=== PATIENT | male | born 1935 | race Caucasian/White ===

== ENCOUNTER → 2016-05-29 | Outpatient (CLI) | payer MEDICARE, OTHER ==
[~2016-05-29] MED LIST: ATEN50TA2 PO; BENA20TA2 PO; BISO5TAB5 PO; CALC-210 PO; DIGO0.12 PO; FURO40TA2 PO; GLUC500T53 PO; LISI10TA4 PO; NEXI40CA PO; OPTI0.5D5 OU; SIMV20TA2 PO; VITMTA PO; XARE15TA PO
[2016-05-29 13:18] LABS: ANION GAP 9 MEQ/L (8-16); BLOOD UREA NITROGEN 18 MG/DL (7-18); CALCIUM LEVEL 8.8 MG/DL (8.8-10.2); CARBON DIOXIDE LEVEL 29 MEQ/L (21-32); CHLORIDE LEVEL 105 MEQ/L (98-107); CREATININE FOR GFR 1.04 MG/DL (0.70-1.30); GLOMERULAR FILTRATION RATE > 60.0 (>35); GLUCOSE, FASTING 99 MG/DL (83-110); POTASSIUM SERUM 4.2 MEQ/L (3.5-5.1); SODIUM LEVEL 143 MEQ/L (136-145)
[2016-05-29 13:35] LABS: CALCIUM OXALATE CRYSTALS SMALL
== END ==
LOC: M SMT 10:11
PROVIDERS: ATTEND Nurse Practitioner Women's Health
DX: R31.29 Other microscopic hematuria (principal)
CPT/HCPCS: 36415; 80048; 81001; 87086; 88108; G0463

== ENCOUNTER → 2016-06-05 | Outpatient (CLI) | payer MEDICARE, OTHER ==
--- NOTE | 2016-06-05 16:15 | REP ---
Clinical: Microscopic hematuria. Technique: Axial precontrast, contrast enhanced, and delayed images of the abdomen and pelvis using 100 ml Isovue 370 intravenous contrast material with delayed coronal and sagittal re-formations. Comparison: 03/18/2014. Findings: The kidneys demonstrate mild symmetric chronic perinephric stranding without hydronephrosis or nephrolithiasis. Solitary bilateral sub centimeter cysts are noted along with 1.8 centimeter and 1.9 cm simple right renal cysts. The kidneys demonstrate symmetric enhancement as well as symmetric excretion into the collecting system on delayed images. The prostate gland is heterogeneous and enlarged measuring 6.5 cm maximal diameter with mass effect on the base of the bladder. Liver, spleen, pancreas, and bilateral adrenal glands are normal. Cholelithiasis noted without CT evidence for acute cholecystitis. The enteric system demonstrates scattered diverticula without acute diverticulitis and no evidence for bowel obstruction or acute inflammatory process. Normal terminal ileum and appendix are identified in the right lower quadrant. Small fat containing inguinal hernias noted. No ascites. No adenopathy. No free air. Abdominal aorta without aneurysm or dissection. Surrounding musculoskeletal structures demonstrate degenerative changes without focal osseous abnormality. Lung bases demonstrate chronic plate-like scarring in the left lower lobe as well as moderate hiatal hernia at the gastroesophageal junction. Impression: 1. Few simple renal cysts measuring up to 1.9 cm in the right kidney and no evidence for nephrolithiasis, hydroureteronephrosis or renal mass lesion. 2. Heterogeneously enhancing enlarged prostate gland measuring 6.5 cm maximal diameter. 3. Scattered colonic diverticula without acute diverticulitis. 4. Cholelithiasis. 5. Moderate hiatal hernia. Signed by Ivan Clements MD 06/05/2016 04:07 P
== END ==
LOC: M RAD 15:09
PROVIDERS: ATTEND Nurse Practitioner Women's Health
DX: R31.29 Other microscopic hematuria (principal); N28.1 Cyst of kidney, acquired; N40.0 Benign prostatic hyperplasia without lower urinary tract symptoms; K57.30 Diverticulosis of large intestine without perforation or abscess without bleeding; K80.20 Calculus of gallbladder without cholecystitis without obstruction; K44.9 Diaphragmatic hernia without obstruction or gangrene

== ENCOUNTER → 2016-06-07 | Outpatient (CLI) | payer MEDICARE, OTHER ==
--- NOTE | 2016-06-07 20:19 | REP ---
PA and lateral chest 06/07/2016 Indication: Bronchitis Comparison: PA and lateral chest 08/20/2011, CT abdomen pelvis 06/05/2016 The cardiac silhouette is upper normal size. There is a retrocardiac hiatal hernia of 8.6 cm transverse dimension containing a small air fluid level. There is blunting in the left costophrenic angle consistent with pleural scarring and/or minimal left basilar pleural effusion. There is bibasilar atelectasis. There is calcification anterior longitudinal ligament within the thoracic spine. Impression 1. Cardiac silhouette is upper normal size. 2. Small amount of left basilar pleural scarring and/or minimal left basilar pleural effusion. 3. Bibasilar atelectasis. 4. 8.6 cm retrocardiac hiatal hernia containing small air fluid level Signed by Luna Napoles MD 06/07/2016 08:11 P
== END ==
LOC: M CLY 13:02
PROVIDERS: ATTEND Family Medicine
DX: J40 Bronchitis, not specified as acute or chronic (principal); K44.9 Diaphragmatic hernia without obstruction or gangrene
CPT/HCPCS: 71020; G0463

== ENCOUNTER 2016-06-11 09:02 | Inpatient (IN) | payer MEDICARE, OTHER ==
[~2016-06-11] VITALS: Ht 171.4 cm; Wt 80.8 kg
[~2016-06-11 09:02] MED LIST changes: -ATEN50TA2 PO; -BENA20TA2 PO; +BENAZEPRIL 20 MG TAB PO SCH; -BISO5TAB5 PO; +BISOPROLOL FUMARATE 10 MG TAB PO SCH; -CALC-210 PO; -DIGO0.12 PO; -FURO40TA2 PO; -GLUC500T53 PO; -LISI10TA4 PO; -NEXI40CA PO; -OPTI0.5D5 OU; -SIMV20TA2 PO; -VITMTA PO; -XARE15TA PO
[2016-06-11] MEDS ORDERED: ACETAMINOPHEN TAB 650MG DOSE (2X325MG) PO PRN (09:45)
--- NOTE | 2016-06-11 10:19 | HPE ---
DATE OF ADMISSION: 06/11/2016 CHIEF COMPLAINT Does not feel well. HISTORY: Mr. Camrona is an 80-year-old male with a history of chronic atrial fibrillation who presented to this office 4 days ago with complaints of not feeling well, being uncomfortable when he lays down but denying chest pain or significant dyspnea. He was noted to be in atrial fibrillation with rapid ventricular response 120-130. He at that time was on bisoprolol/hydrochlorothiazide combination 2.5/6.25 and we elected to change him to 5 mg bisoprolol with instructions that if he notices feeling any worse in the interval to call the on-call physician or go to the ER. He did go to the ER on two occasions over the week. Was seen in [facility] where no changes to his medication regimen were made. Various tests were done but again no therapeutic intervention. He returns here today with continuing heart rate of 130, describing he has not slept in several days, feels ill at ease when he lays down but he is having trouble describing precisely who he feels ill at ease. PAST MEDICAL HISTORY: Remarkable for: Hypertension. Hyperlipidemia. Chronic atrial fibrillation. Allergy to PENICILLIN. Hepatitis A in 1972. Currently being evaluated by urology for BPH symptoms with microhematuria. 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 FAMILY HISTORY: Remarkable for father dying of emphysema at age 76. Son with colon cancer. The patient did have colonoscopy in 2002. Has never been in the hospital before for a medical problem. He has had left meniscus surgery, left inguinal hernia repair in 2005 and surgical removal of a cyst on his back. SOCIAL HISTORY: He is , lives near [place], [place]. REVIEW OF SYSTEMS: Vaguely ill at ease when he tried to lie down but denies dyspnea and denies substernal crushing chest pain. Denies nausea, vomiting, abdominal pain, diarrhea. Denies pain with breathing. No cough. No hemoptysis. He is not experiencing musculoskeletal pain. No hot joints. No pain with urination. No alteration of urinary patterns. No fevers, chills or sweats. CURRENT MEDICATIONS - simvastatin 20 mg daily - benazepril 20 mg daily - Nexium 40 mg by mouth daily - Xarelto 15 mg by mouth daily - bisoprolol 5 mg by mouth daily EXAM: The patient's blood pressure is 136/84, pulse 132, respiratory rate 18, O2 sat 95% on room air. He is afebrile with temperature 97.9, 67.5 inches, 185-1/2 pounds. General: Alert, pleasant, no distress. PSYCH: He is alert, oriented, neutral mood, appropriate affect. HEENT: Normocephalic, atraumatic. No thyroid enlargement or tracheal shift. No oral lesions. Neck: Shows good range of motion with no palpable mass. Lungs: Essentially clear to auscultation with minimal faint basilar rales appreciated. Review of chest x-ray done in this office Friday compared to one done that is available on a disc that he brought from [facility] shows some increased vascular markings and maybe some effusion developing in the base which was not present on Friday. Heart: Irregular rhythm consistent with atrial fibrillation. No murmur noted. Pulses are perceived everywhere. Abdomen: Soft. Slight right upper quadrant tenderness. No definite HJR appreciated at this time, however. Extremities: Show 1+ lower extremity edema. Again it is early in the morning but he has not been in bed of in the past couple of days because of difficulty lying down. He has no rash or unusual bruising. No neurologic abnormalities. He is alert, oriented and has no focal deficits. ASSESSMENT: Atrial fibrillation chronic with rapid ventricular response. This developed over the past several days, probable early onset of congestive heart failure (CHF). PLAN: The patient will be admitted to hospital, monitored space. Will increase bisoprolol to 10 mg daily and Lasix 20 mg by mouth twice daily with dosing parameters. Continue is benazepril with dosing parameters. Consult cardiology regarding atrial fibrillation problem. Continues his Xarelto since this agent will provide both deep venous thrombosis (DVT) prophylaxis and stroke prophylaxis in a setting of atrial fibrillation. Expectations for hospital stay will be to achieve rate control and relieve symptoms that are suggestive of early CHF. Anticipate two night stay and inpatient admission.
[2016-06-11 11:16] VITALS: BP 136/88
[2016-06-11 11:29] LABS: BASO # 0.1 K/mm3 (0.0-0.2); BASO % 0.7 % (0.0-1.0); EOS # 0.1 K/mm3 (0.0-0.50); EOS % 0.7 % (0.0-3.0); LARGE UNSTAINED CELL # 0.3 K/mm3 (0.0-0.4); LARGE UNSTAINED CELL % 2.2 % (0.0-4.0); LYMPH # 1.8 K/mm3 (1.5-4.5); LYMPH % 11.7 % (24.0-44.0); MEAN CORPUSCULAR HEMOGLOBIN 29.4 pg (27.0-33.0); MEAN CORPUSCULAR HGB CONC 31.7 g/dl (32.0-36.5); MEAN CORPUSCULAR VOLUME 92.8 fl (80.0-96.0); MONO # 0.8 K/mm3 (0.0-0.8); MONO % 6.2 % (0.0-5.0); NEUTROPHILS # 10.2 K/mm3 (1.8-7.7); NEUTROPHILS % 78.6 % (36.0-66.0); PLATELET COUNT, AUTOMATED 198 k/mm3 (150-450); RED CELL DISTRIBUTION WIDTH 13.7 % (11.5-14.5)
[2016-06-11] MEDS ORDERED: GLUC500T53 PO (11:34)
[2016-06-11] MEDS ORDERED: VITMTA PO (11:34)
[2016-06-11] MEDS ORDERED: SIMV20TA2 PO (11:34)
[2016-06-11] MEDS ORDERED: BISO5TAB5 PO (11:34)
[2016-06-11] MEDS ORDERED: BENA20TA2 PO (11:34)
[2016-06-11] MEDS ORDERED: XARE15TA PO (11:34)
[2016-06-11] MEDS ORDERED: CALC-210 PO (11:34)
[2016-06-11] MEDS ORDERED: NEXI40CA PO (11:34)
[2016-06-11] MEDS ORDERED: OPTI0.5D5 OU (11:38)
[2016-06-11 12:01] LABS: ALBUMIN 3.8 GM/DL (3.2-5.2); ALBUMIN/GLOBULIN RATIO 1.19 (1.00-1.93); ALKALINE PHOSPHATASE 69 U/L (45-117); ALT/SGPT 42 U/L (12-78); ANION GAP 9 MEQ/L (8-16); AST/SGOT 24 U/L (15-37); BILIRUBIN,TOTAL 0.5 MG/DL (0.2-1.0); BLOOD UREA NITROGEN 21 MG/DL (7-18); CALCIUM LEVEL 8.7 MG/DL (8.8-10.2); CARBON DIOXIDE LEVEL 27 MEQ/L (21-32); CHLORIDE LEVEL 106 MEQ/L (98-107); CREATININE FOR GFR 1.28 MG/DL (0.70-1.30); GLOMERULAR FILTRATION RATE 57.3 (>35); GLUCOSE, FASTING 132 MG/DL (83-110); POTASSIUM SERUM 3.8 MEQ/L (3.5-5.1); SODIUM LEVEL 142 MEQ/L (136-145); T UPTAKE 35 % (33-40); THYROXINE (T4) 9.4 UG/DL (4.5-12.0)
[2016-06-11] MEDS: PANTOPRAZOLE 40MG TAB (PROTONIX) PO SCH (13:21)
[2016-06-11] MEDS ORDERED: PREVNAR 13 VACCINE SYRINGE (CPT CODE:90670) IM SCH (15:15)
[2016-06-11 16:00] VITALS: BP 102/68
[2016-06-11] MEDS ORDERED: FUROSEMIDE 20 MG TAB PO SCH (17:00)
[2016-06-11] MEDS ORDERED: DIGOXIN INJ 0.5 MG/2 ML AMP (J1160) IV STA (17:25)
[2016-06-11] MEDS: RIVAROXABAN 15 MG TAB (XARELTO) PO SCH (17:33)
[2016-06-11] MEDS: METOPROLOL TART 25 MG TABLET PO SCH ×2 (17:38→23:59)
[2016-06-11] MEDS ORDERED: DIGOXIN 0.125 MG TAB PO ONE (17:45)
--- NOTE | 2016-06-11 18:54 | CR ---
DATE OF CONSULTATION: 06/11/2016 CARDIOLOGY CONSULTATION REFERRING PHYSICIAN: Dr. Jerel Ocasio INDICATION: Atrial fibrillation with rapid ventricular response. New-onset heart failure. HISTORY: An 80-year-old father of three grown children, retired resident of [place], [place], has been followed by Dr. Ocasio for multiple medical problems, including chronic essential hypertension and atrial fibrillation. Has had chronic atrial fibrillation for at least the past 2 years, previously controlled with Xarelto and low-dose bisoprolol. Apparently for the past week, the patient has noticed intermittent palpitations, worsening effort dyspnea, and intermittent diaphoresis and unsteadiness. Was seen by Dr. Ocasio Friday. June 07, and was found to have a rapid ventricular response to his chronic atrial fibrillation. His dosage of bisoprolol was increased. On the weekend he presented to [facility] Emergency Room because of recurrent rapid rates and shortness of breath. Was seen in followup by Dr. Ocasio today and again was found to have rapid ventricular response, averaging approximately 130 beats per minute despite the increased medication. Chest x-ray yesterday actually showed new-onset pulmonary venous congestion with pleural effusion. In light of these findings, he was referred for admission today. OTHER CARDINAL CARDIAC SYMPTOMS: Denies history of chest, jaw, or arm discomfort. Is unaware of an abnormal electrocardiogram (EKG) but did have a treadmill study more than 10 years ago through our office, which was reportedly "normal." Effort dyspnea this past week, as mentioned above, but no history of congestive heart failure in the past. Denies orthopnea or nocturnal dyspnea but did not sleep well last evening. Denies history of cough, hemoptysis, or sputum. Remote brief smoking history and prior episodes of walking pneumonia. Unaware of prior rheumatic fever, heart murmur, or cardiomegaly. Has longstanding essential hypertension. No significant weight problem (weighed 135 pounds at age 16; max weight 185 pounds 10 years ago; his weight has been stable at 175 pounds the past year). Interestingly, despite his history of atrial fibrillation, up until this past week he had not felt palpitations or had an awareness of his heart action. Reports drinking 2 cups of caffeinated coffee and drinking one glass of red wine daily. Avoids other sources of caffeine. No known thyroid dysfunction. Has a history of intermittent sinusitis/seasonal prior Afrin decongestant use. No recent problem. Has had some unsteadiness of the past few days. Denies actual falling or loss of consciousness. No history of lateralizing neurological deficit, flank pain, or blue toe syndrome. Recently being worked up for microscopic hematuria. Known prostatism. Denies claudication, ankle swelling, history of varicose veins, or phlebitis. CORONARY RISKS: Age, male gender, chronic hypertension, remote cigar and pipe smoker; stopped 40 years ago. Treated for hypercholesterolemia. No history of diabetes mellitus. No family history of premature coronary heart disease. No history of symptomatic carotid vascular disease. OTHER PAST MEDICAL HISTORY: 1. Gastroesophageal reflux disease, on Nexium. 2. Prior diverticular disease. 3. Previous colonic polypectomy. 4. History of vasovagal syncope. 5. Remote right knee surgery. 6. Remote inguinal herniorrhaphy. 7. Remote lipoma excision. 8. Prior bilateral cataract extraction. 9. Degenerative joint disease with degeneration of cervical discs with chronic neck discomforts. 10. Prostatism with microscopic hematuria. REVIEW OF SYSTEMS: Denies any recent history of fever, chills, or night sweats. Wears corrective lenses for reading. Reduced auditory acuity but does not often wear his hearing aids. Has his own teeth. Intermittent reflux and heartburn. No recent abdominal pain or gastrointestinal (GI) bleeding. Denies dysuria or hematuria. Urinary frequency related to his prostatism and microscopic hematuria, in the process of being worked up by neurology for tentative cystoscopy in several weeks' time. Chronic neck pain but no other arthralgia. Seasonal allergies but no frequent infections. All other systems review is negative. MEDICATIONS: At home he takes: - bisoprolol 5 mg daily - benazepril 20 mg daily - Xarelto 15 mg daily - simvastatin 20 mg at bedtime - Nexium 40 mg daily - calcium with vitamin B one tablet daily - glucosamine 1 gram daily - multivitamin daily - Refresh eyedrops one drop each eye as needed for dry eyes ALLERGIES: PENICILLIN (rash). PHYSICAL EXAMINATION: CONSTITUTIONAL: Pleasant, quite talkative elderly male of medium body build but quite tall. He lay comfortably with the head of bed elevated at 30 degrees. No pallor. VITAL SIGNS: Heart rate 120 beats per minute and irregularly irregular, blood pressure 107/69 supine, 100/60 sitting with legs dependent (both arms), respiratory rate 18 per minute, oxygen saturation 95% on room air. Afebrile. Weight 179 pounds, height 67 inches, body mass index (BMI) 27.7. EYES: Arcus senilis. No pallor or icterus. No xanthelasma. ENT/MOUTH: Multiple missing teeth. Normal palate. Normal oral moisture. No central cyanosis. NECK: Trachea midline. Thyroid not enlarged. Neck veins appear to be 2 cm above the sternal angle. RESPIRATORY: Normal-appearing chest configuration and chest expansion. Good air entry over both lung sarah with few bibasilar inspiratory rales and improved with a deep cough. No expiratory rhonchi. CARDIOVASCULAR: Apical impulse not palpable. Heart sounds were quite variable with his arrhythmia. No audible gallop or murmur. Normal carotid upstroke but variable volume related to his arrhythmia. No bruits. Upper extremity, and femoral pulses were symmetrical and normal. Pedal pulses were symmetrically decreased. No dependent edema. No varicose veins. His abdominal aorta was not palpable. No abdominal bruits. GASTROINTESTINAL: Soft, nontender abdomen with normal bowel sounds. No splenomegaly with liver span 7 cm in the right mid clavicular line. Rectal examination not indicated, but stool will be collected for occult blood. MUSCULOSKELETAL: Slight degenerative deformities of his distal finger joints but no other obvious joint deformity. Some proximal muscle weakness but normal tone. NEUROLOGIC/PSYCHIATRIC: Bright, alert, and oriented. Quite a tangential historian but oriented. Normal symmetrical eye, facial, and extremity movements with no abnormal movements. Normal spine curvature. SKIN: No rashes, ecchymotic lesions, pallor, or icterus. INVESTIGATIONS: Posterior-anterior (PA) and left lateral chest x-ray from [facility] on 06/10/2016 was reviewed independently and shows obvious cardiomegaly with CT ratio 17.2:32. Slightly unfolded thoracic aorta. Pulmonary venous congestion with subtle interstitial edema and pleural effusion. ELECTROCARDIOGRAM: Tracing taken today at 1:58 p.m. shows underlying atrial fibrillation with somewhat rapid ventricular response, averaging 127 beats per minute. Narrow QRS complexes but low voltages and slow precordial R-wave progression with persistent S waves in V5 and V6, in keeping with pulmonary disease. Could not rule out prior septal injury. Nonspecific diffuse ST/T-wave abnormalities. No prior EKG available for comparison. LABORATORY DATA: Blood work today shows a hemoglobin of 14.1 with leukocytosis of 13,000. Normal platelet count. Chemistry confirmed electrolyte balance with BUN 21, creatinine 1.28 (slightly up from 05/29/2016, when BUN was 18, creatinine 1.0. Random glucose 132. Serum magnesium was normal at 2.0. Liver function studies were normal with albumin 3.8. Normal cardiac enzymes. BNP level was elevated at 543. Thyroid profile showed a marginally increased TSH but normal free T4 index and T4 level. The last available lipid profile 08/11/2015 showed a total cholesterol of 134, LDL 69, HDL 42, triglyceride 114 with ratio 3.2. Urinalysis 05/29/2016 showed 2+ microscopic hematuria but no pyuria or bacteria. Urine protein and glucose were negative. IMPRESSION/PLAN: 1. Atrial fibrillation, chronic: Somewhat interesting that his ventricular response should increase at this point and that he should become aware of his heart action when he had not in the past. This may well be a reflection of cardiac enlargement and left ventricular dysfunction that has developed with time. In light of his current blood pressure and continued suboptimal blood pressure control, his bisoprolol has been discontinued, and I have initiated digoxin with a low-dose intravenous (IV) and by mouth now, to continue with 0.125 mg daily. I have also written an order for metoprolol 25 mg by mouth every six hours; hold for ventricular response less than 90 beats per minute. He continues on Xarelto oral anticoagulation. 2. Heart failure (unspecified/acute): Has developed symptoms and radiographic signs of congestion over the course of the past week, likely related to his underlying hypertensive heart disease and rapid ventricular response to atrial fibrillation (tachycardia-mediated cardiomyopathy). An echocardiogram/Doppler study has been requested by his primary physician and is pending at this time. I suspect his cardiomegaly is a reflection of a longstanding hypertension. At this point, optimal heart rate control using digoxin would be considered chand management. In light of his soft blood pressure, I have discontinued his benazepril 20 mg daily in favor of lisinopril 5 mg by mouth every 6 hours, hold for systolic blood pressure less than 120. This is a temporary measure until we determine how much beta blockade he will require. I have placed him on a modest salt and fluid intake restriction. He is receiving oral anticoagulation that should prevent him from developing phlebitis in hospital. I have also placed a consult with cardiac rehabilitation for congestive heart failure (CHF) education and gradual ambulation. With his current soft blood pressure, I have placed his Lasix temporarily on hold. 3. Abnormal electrocardiogram (EKG): Has been free of symptomatic myocardial ischemia. Has diffuse repolarization abnormalities but negative troponin I level. Followup cardiac enzymes have been requested. Chand management to prevent infarction would be optimal heart rate control as alluded to above. I am cautiously optimistic this will be achieved with combination of low-dose digoxin and metoprolol. If his blood pressure will permit, we will keep him on an angiotensin-converting enzyme (SHAMA) inhibitor as well as his Xarelto. In light of his gastrointestinal (GI) history and microscopic hematuria, we have withheld any antiplatelet therapy. In the future it may well be prudent to redefine his coronary prognosis as an outpatient. 4. Hypertensive heart disease (benign with heart failure): This is believed to be the chief reason for his cardiomegaly, predisposition to atrial fibrillation, and left ventricular dysfunction. Currently, his blood pressure is quite soft, so I have adjusted his medications as mentioned above. I am cautiously optimistic that prior to his discharge we will be able to resume medications perhaps twice a day, and he will likely require at least low-dose diuretic therapy. We will continue to follow his chemistry and renal function with you carefully. Thank you for allowing me to assist in the care of your patient. I will continue to monitor him daily with you for the time being.
[2016-06-11 20:00] VITALS: BP 131/87
[2016-06-11] MEDS: SIMVASTATIN 20 MG TAB PO SCH (20:34)
--- NOTE | 2016-06-11 21:52 | ECHO ---
DATE OF PROCEDURE: 06/11/2016 AGE: 80 GENDER: Male HEIGHT: 67 inches WEIGHT: 178 pounds BODY SURFACE AREA: 1.93 sq m PATIENT LOCATION: Inpatient, ICU, room 3203 REFERRING PHYSICIAN: Jerel Ocasio MD INDICATION: Dyspnea. Atrial fibrillation. Abnormal EKG. 2D MEASUREMENTS: RV: 3.5 cm LV: 5.0 cm Septum: 1.2 cm Posterior wall: 1.2 cm Aortic root: 3.1 cm LA: 4.7 cm LVEF: 50-55% DOPPLER MEASUREMENTS: AV: 1.1 m/s LVOT diameter 2.1 cm LVOT: 0.68 m/s MV-E: 110 Early mitral deceleration time: 109 E prime: 9.0, E/E prime ratio: 11.9 PV: 0.8 m/s Pulmonary artery acceleration time; 70 ms RVSP: 51 mmHg IVC: 2.3 cm COMMENTS: Underlying atrial fibrillation with somewhat rapid ventricular response varying between 94 and 120 bpm. No intraventricular conduction disturbance. Moderately dilated left atrium with left ventricle upper limits of normal in size. The right ventricle was normal, but the right atrium was at least mild to moderately enlarged. Left ventricle (LV) wall thickness was upper limits of normal to mildly hypertrophied symmetrically. On real-time imaging from the parasternal and apical projections wall motion appeared to be normal to slightly globally hypokinetic. Mild mitral annular calcification, but normal leaflet thickness and excursion, however, there appeared to be a slight "low flow" appearance. No posterior systolic buckling. Three equal sized aortic cusps with mildly thickened cusp edges, but adequate cusp separation. Degree of premature cusp closure suggesting a reduced forward stroke volume. Normal aortic root size. No apparent intracardiac mass or pericardial effusion. A left pleural effusion was visible. Color flow Doppler study taken from the parasternal and apical projections showed mild aortic, mild mitral and moderate tricuspid insufficiency. Guided continuous wave Doppler of his aortic valve showed a normal peak systolic velocity against LV outflow tract obstruction. Pulsed and continuous wave Doppler of his LV inflow tract taken from the apical four-chamber projection showed normal diastolic filling velocities against mitral stenosis. There was only early diastolic/passive filling pattern consistent with atrial fibrillation. There was an abbreviated early mitral deceleration time suggestive of a restrictive impairment of LV diastolic function, but using pulsed and tissue Doppler of his mitral annulus. Current mean left atrial pressure was estimated upper limits of normal. Pulsed and continuous wave Doppler of his pulmonary trunk showed a normal peak systolic velocity against RV outflow tract obstruction. His pulmonary artery acceleration time was abbreviated consistent with an elevated pulmonary vascular resistance. Using guided continuous wave Doppler of his tricuspid valve we were able to estimate his right ventricular systolic pressure (moderately increased). His inferior vena cava was mild to moderately dilated with slightly reduced respiratory collapse in keeping with an elevated central venous pressure of approximately 15 mmHg. CONCLUSION: Left ventricle upper limits of normal in size with borderline hypertrophy and slight global hypokinesis. Valvular flow appearance in keeping with reduced stroke volume. Moderately dilated left atrium with Doppler sign of impairment of LV diastolic function with current estimated mean left atrial pressure upper limits of normal. Normal right ventricular size with Doppler evidence of at least moderate pulmonary hypertension. Mild to moderately dilated right atrium and inferior vena cava with reduced respiratory collapse suggesting an elevated central venous pressure. Aortic valvular sclerosis without stenosis, but mild insufficiency. Mild mitral annular calcification with mild insufficiency.
--- NOTE | 2016-06-11 22:20 | ECGEPIP ---
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
[2016-06-12] VITALS: BP 135/79
[2016-06-12 04:00] VITALS: BP 134/81
[2016-06-12 05:41] LABS: ANION GAP 11 MEQ/L (8-16); BLOOD UREA NITROGEN 19 MG/DL (7-18); CALCIUM LEVEL 8.4 MG/DL (8.8-10.2); CARBON DIOXIDE LEVEL 26 MEQ/L (21-32); CHLORIDE LEVEL 109 MEQ/L (98-107); CREATININE FOR GFR 1.12 MG/DL (0.70-1.30); GLOMERULAR FILTRATION RATE > 60.0 (>35); GLUCOSE, FASTING 125 MG/DL (83-110); POTASSIUM SERUM 4.1 MEQ/L (3.5-5.1); SODIUM LEVEL 146 MEQ/L (136-145)
[2016-06-12] MEDS: METOPROLOL TART 25 MG TABLET PO SCH ×3 (05:48→17:34)
[2016-06-12 08:00] VITALS: BP 157/87
[2016-06-12] MEDS: PANTOPRAZOLE 40MG TAB (PROTONIX) PO SCH (08:19)
[2016-06-12] MEDS: DIGOXIN 0.125 MG TAB PO SCH (08:20)
[2016-06-12] MEDS ORDERED: FUROSEMIDE 40 MG TAB PO ONE (08:45)
--- NOTE | 2016-06-12 09:27 | IPN ---
CARDIOLOGY PROGRESS NOTE DATE: 06/12/2016 SUBJECTIVE: Patient claims to have slept well and has been up in his room without any chest discomfort, shortness of breath, palpitations or dizziness. Appears to have tolerated his medications without adverse effect. OBJECTIVE: Pleasant elderly male of medium body build sitting comfortably at the bedside. No pallor or cyanosis. Heart rate 91 beats per minute and irregularly irregular. With ambulation about the room his rate increases to approximately 110-120 beats per minute. His standing blood pressure this morning is 134/67. Normal oral moisture. Trachea midline. Respiratory rate 18 per minute, oxygen saturation 96% on room air. He was afebrile. His weight is stable. Intake and output balance is even. Neck veins were below his clavicle sitting. Continues to have bibasilar inspiratory crepitations, but no expiratory rhonchi. Apical impulse just lateral to the midclavicular line, fifth intercostal space with him sitting up leaning forward heart sounds unchanged from yesterday, variable related to his arrhythmia. No audible gallop. No audible murmur. Normal carotid upstrokes and variable volume. Has plus/minus pitting edema one third of the way up both lower legs sitting. His abdomen is soft. 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 No significant pauses on his combination digoxin and metoprolol. So far he has received every one of his scheduled doses of metoprolol. We will continue to dose him every 6 hours for the next day or so until we determine that his dose requirement of beta blockade that we can ultimately switch to a twice a day regimen. EKG: Tracing this morning shows again improved rate control to his atrial fibrillation. ST/T wave abnormalities became slightly less prominent, still has diffuse T-wave flat. LABORATORY DATA: Electrolytes today were normal with a slightly improved BUN of 19, creatinine slightly improved at 1.1, fasting glucose 125. Serial Troponin I levels have been negative. IMPRESSION/PLAN: 1. Atrial fibrillation (chronic): At this point he is free of any symptomatic arrhythmia. His rate is well controlled with digoxin and metoprolol. We are still evaluating the dose of metoprolol that will be required care home. He is tolerating his medications without adverse effect. Remains on Xarelto without manifest bleeding. 2. Heart failure (systolic and diastolic/acute): No dyspnea but still has some bibasilar inspiratory rales and some dependent edema. Echocardiogram yesterday showed borderline left ventricular enlargement and hypertrophy with slight global hypokinesis believed to be related to his rapid ventricular response atrial fibrillation. We are hoping that this improves with rate control. His left atrium was moderately enlarged and estimated mean left atrial pressure was only mildly increased, had at least moderate pulmonary hypertension with a dilated right atrium and inferior vena cava, suggestive of a slightly elevated central venous pressure. I have ordered Lasix 40 mg today and perhaps for the next few days, but I am not convinced he will require loop diuretic therapy care home. 3. Abnormal EKG: Has remained free of any chest discomfort. EKG ST segment depressions have become less. Serial Troponin I levels have been negative. We will continue on his current beta-soraida with hold parameters. Since the introduction of metoprolol, because of hold parameters for systolic blood pressure less than 120, he has not received lisinopril to this point. Remains on a statin therapy and Xarelto. 4. Hypertensive heart disease (benign with heart failure): Current blood pressure appears to be adequately controlled with his beta-soraida. As mentioned, because of some signs of congestion, we have ordered Lasix 40 mg daily for the next day or so. We will watch his chemistry closely. SHAMA inhibitor remains on split dose with hold parameters, again trying to determine dose requirement prior to tentative discharge after a few days. I will continue to follow him with you and appreciate the opportunity to participate in the care of your patient.
--- NOTE | 2016-06-12 10:08 | IPNPDOC ---
Assessment/Plan Date Seen The patient was seen on 06/12/16. Problems Problems: (1) Atrial fibrillation with RVR Status: Acute Response to Treatment: Improving Problem Specific Plan: Consult Specialist, Monitor Clinically Problem Text: Meds per cardiology: Dr. Downey. : Digoxin, metoprolol, Xarelto. (2) Acute on chronic combined systolic and diastolic congestive heart failure Status: Acute Problem Specific Plan: Consult Specialist Problem Text: Diuresis per cardiology (3) HTN (hypertension) Status: Chronic Problem Specific Plan: Monitor Clinically Problem Text: Stable. Continue Lisinopril. (4) Hyperlipidemia Status: Chronic Response to Treatment: Stable Problem Specific Plan: Monitor Clinically Problem Text: Simvastatin 20mg po daily. Plan / VTE VTE Prophylaxis Ordered?: Yes (Xarelto) Plan Plan Text Attending note: I saw and evaluated the patient, and agree with plan of care as discussed and documented above. Malvin Croft MD Subjective Review of Systems CC/HPI The patient is a 80-year-old male admitted with a reason for visit of Afib With Rvr. Events since last encounter Feeling well denies c/o. Started on NTG and metoprolol by cardiology. Dosing adjustments made accordingly. Lasix started also for diuresis. Echo completed. Constitutional: Denies: Chills, Fever ENT: Denies: Head Aches Skin: Denies: Rash Pulmonary: Denies: Cough, Dyspnea Cardiovascular: Denies: Chest Pain, Palpitations Gastrointestinal: Denies: Nausea, Vomiting Genitourinary: Denies: Dysuria, Frequency, Incontinence Neurological: Denies: Weakness Psych: Reports: Mood Normal Objective Physical Examination General Exam: Positive: Alert, No Acute Distress Eye Exam: Positive: EOMI, PERRLA ENT Exam: Positive: Atraumatic, Mucous membr. moist/pink Neck Exam: Positive: Supple, Negative: JVD Chest Exam: Positive: Clear to auscultation, Normal air movement Heart Exam: Positive: Normal S1, Normal S2, Rate Normal Abdomen Exam: Positive: Normal bowel sounds, Soft, Negative: Tenderness Extremity Exam: Positive: Clubbing, Negative: Cyanosis Skin Exam: Positive: Nl turgor and temperature, Negative: Rash Psych Exam: Positive: Mental status NL, Oriented x 3 Vital Signs/I&O Vital Signs Date Time Temp Pulse Resp B/P Pulse Ox O2 Delivery O2 Flow Rate FiO2 06/12/16 08:20 99 06/12/16 08:00 Room Air 06/12/16 08:00 97.8 18 157/87 96 I&O- Last 24 Hours up to 6 AM 06/12/16 06:00 Intake Total 360 ml Output Total 900 ml Balance -540 ml Laboratory Data Labs 24H Laboratory Tests 2 06/11/16 11:17: Blood Urea Nitrogen 21H, Creatinine 1.28, Sodium Level 142, Potassium Level 3.8 , Chloride Level 106, Carbon Dioxide Level 27, Calcium Level 8.7L, Aspartate Amino Transf (AST/SGOT) 24, Alanine Aminotransferase (ALT/SGPT) 42, Total Creatine Kinase 57, Alkaline Phosphatase 69, Total Bilirubin 0.5, Total Protein 7.0, Albumin 3.8, Albumin/Globulin Ratio 1.19, Anion Gap 9, B-Type Natriuretic Peptide 543H, White Blood Count 13.0H, Red Blood Count 4.78, Hemoglobin 14.1, Hematocrit 44.4, Mean Corpuscular Volume 92.8, Mean Corpuscular Hemoglobin 29.4 , Mean Corpuscular Hemoglobin Concent 31.7L, Red Cell Distribution Width 13.7, Platelet Count 198, Neutrophils (%) (Auto) 78.6H, Lymphocytes (%) (Auto) 11.7L, Monocytes (%) (Auto) 6.2H, Eosinophils (%) (Auto) 0.7, Basophils (%) (Auto) 0.7 , Neutrophils # (Auto) 10.2H, Lymphocytes # (Auto) 1.8, Monocytes # (Auto) 0.8, Eosinophils # (Auto) 0.1, Basophils # (Auto) 0.1, Creatine Kinase MB 1.8, Creatine Kinase MB Relative Index 3.15, Free Thyroxine Index 3.3, Glomerular Filtration Rate 57.3, Large Unclassified Cells # 0.3, Large Unclassified Cells % 2.2, Magnesium Level 2.0, Thyroid Stimulating Hormone (TSH) 3.830H, Thyroxine (T4) 9.4, Triiodothyronine (T3) Uptake 35, Troponin I < 0.02 06/11/16 17:14: Total Creatine Kinase 59, Creatine Kinase MB 1.4, Creatine Kinase MB Relative Index 2.37, Troponin I < 0.02 06/12/16 01:53: Total Creatine Kinase 53, Creatine Kinase MB 1.5, Creatine Kinase MB Relative Index 2.83, Troponin I < 0.02 06/12/16 04:50: Blood Urea Nitrogen 19H, Creatinine 1.12, Sodium Level 146H, Potassium Level 4.1 , Chloride Level 109H, Carbon Dioxide Level 26, Calcium Level 8.4L, Anion Gap 11 , Glomerular Filtration Rate > 60.0 CBC/BMP Laboratory Tests 06/11/16 11:17 Calcium Level 8.7 L, Aspartate Amino Transf (AST/SGOT) 24, Alanine Aminotransferase (ALT/SGPT) 42, Total Creatine Kinase 57, Alkaline Phosphatase 69, Total Bilirubin 0.5, Total Protein 7.0, Albumin 3.8, Red Blood Count 4.78, Mean Corpuscular Volume 92.8, Mean Corpuscular Hemoglobin 29.4, Mean Corpuscular Hemoglobin Concent 31.7 L, Red Cell Distribution Width 13.7, Neutrophils (%) (Auto) 78.6 H, Lymphocytes (%) (Auto) 11.7 L, Monocytes (%) ( Auto) 6.2 H, Eosinophils (%) (Auto) 0.7, Basophils (%) (Auto) 0.7, Neutrophils # (Auto) 10.2 H, Lymphocytes # (Auto) 1.8, Monocytes # (Auto) 0.8, Eosinophils # (Auto) 0.1, Basophils # (Auto) 0.1 06/12/16 04:50 Calcium Level 8.4 L Microbiology Microbiology 06/11/16 MRSA Screen, Received Pending Nery Claros Jun 12, 2016 10:08 MALVIN CROFT MD Jun 12, 2016 14:48
[2016-06-12 12:00] VITALS: BP 115/91
[2016-06-12] MEDS ORDERED: SLF 3 ML SYR IV PRN (15:00)
[2016-06-12 16:00] VITALS: BP 118/75
[2016-06-12] MEDS: RIVAROXABAN 15 MG TAB (XARELTO) PO SCH (17:33)
[2016-06-12 20:00] VITALS: BP 132/81
[2016-06-12] MEDS: SIMVASTATIN 20 MG TAB PO SCH (21:06)
[2016-06-12] MEDS: SLF 3 ML SYR IV SCH (21:07)
[2016-06-12] MEDS: LISINOPRIL 5 MG TAB PO SCH (21:07)
[2016-06-13] VITALS: BP 117/81
[2016-06-13] MEDS: LISINOPRIL 5 MG TAB PO SCH ×3 (03:46→15:00)
[2016-06-13 04:00] VITALS: BP 137/94
[2016-06-13] MEDS: METOPROLOL TART 25 MG TABLET PO SCH ×3 (05:46→11:51)
[2016-06-13] MEDS: SLF 3 ML SYR IV SCH ×3 (05:47→21:02)
[2016-06-13 08:00] VITALS: BP 120/75
--- NOTE | 2016-06-13 08:25 | ECGEPIP ---
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
[2016-06-13] MEDS: PANTOPRAZOLE 40MG TAB (PROTONIX) PO SCH (08:55)
[2016-06-13] MEDS: FUROSEMIDE 40 MG TAB PO SCH (08:55)
[2016-06-13] MEDS: DIGOXIN 0.125 MG TAB PO SCH (08:56)
[2016-06-13 10:12] LABS: ALBUMIN 3.6 GM/DL (3.2-5.2); ANION GAP 8 MEQ/L (8-16); BLOOD UREA NITROGEN 20 MG/DL (7-18); CALCIUM LEVEL 8.4 MG/DL (8.8-10.2); CARBON DIOXIDE LEVEL 31 MEQ/L (21-32); CHLORIDE LEVEL 106 MEQ/L (98-107); CREATININE FOR GFR 1.18 MG/DL (0.70-1.30); GLOMERULAR FILTRATION RATE > 60.0 (>35); GLUCOSE, FASTING 127 MG/DL (83-110); PHOSPHORUS LEVEL 3.3 MG/DL (2.5-4.9); POTASSIUM SERUM 3.6 MEQ/L (3.5-5.1); SODIUM LEVEL 145 MEQ/L (136-145)
--- NOTE | 2016-06-13 10:51 | IPNPDOC ---
Assessment/Plan Date Seen The patient was seen on 06/13/16. Problems Problems: (1) Atrial fibrillation with RVR Status: Acute Response to Treatment: Improving Problem Specific Plan: Consult Specialist, Monitor Clinically Problem Text: Meds per cardiology: Dr. Downey. : Digoxin, metoprolol, Xarelto. Cardiology recommends one more day of monitoring while active. Continue with metoprolol as recommended. Anticipate DC in am if rate remains controlled. (2) Acute on chronic combined systolic and diastolic congestive heart failure Status: Acute Problem Specific Plan: Consult Specialist Problem Text: Diuresis per cardiology (3) HTN (hypertension) Status: Chronic Problem Specific Plan: Monitor Clinically Problem Text: Stable. Continue Lisinopril. (4) Hyperlipidemia Status: Chronic Response to Treatment: Stable Problem Specific Plan: Monitor Clinically Problem Text: Simvastatin 20mg po daily. Plan / VTE VTE Prophylaxis Ordered?: Yes (Xarelto) Subjective Review of Systems CC/HPI The patient is a 80-year-old male admitted with a reason for visit of Afib With Rvr. Constitutional: Denies: Chills, Fever, Malaise, Night Sweats, Weakness Skin: Denies: Breakdown, Lesions, Rash Pulmonary: Denies: Cough, Dyspnea Cardiovascular: Denies: Chest Pain, Lt Headedness, Orthopnea, Palpitations, Paroxysmal Noc. Dyspnea Gastrointestinal: Denies: Abdominal Pain, Diarrhea, Nausea, Vomiting Genitourinary: Denies: Dysuria, Frequency, Incontinence, Retention Neurological: Denies: Change in speech, Confusion, Numbness, Weakness Psych: Reports: Mood Normal, Denies: Depression, Memory Issues Objective Physical Examination General Exam: Positive: Alert, No Acute Distress Eye Exam: Positive: EOMI, PERRLA ENT Exam: Positive: Atraumatic, Mucous membr. moist/pink Neck Exam: Positive: Supple, Negative: JVD Chest Exam: Positive: Clear to auscultation, Normal air movement Heart Exam: Positive: Irregular Rhythm, Rate Normal Telemetry: Positive: No significant arrhythmia Abdomen Exam: Positive: Normal bowel sounds, Soft, Negative: Tenderness Extremity Exam: Positive: Clubbing, Negative: Cyanosis Skin Exam: Positive: Nl turgor and temperature, Negative: Rash Psych Exam: Positive: Mental status NL, Oriented x 3 Vital Signs/I&O Vital Signs Date Time Temp Pulse Resp B/P Pulse Ox O2 Delivery O2 Flow Rate FiO2 06/13/16 08:56 94 06/13/16 08:55 120/75 06/13/16 08:00 97.2 18 94 Room Air I&O- Last 24 Hours up to 6 AM 06/13/16 06:00 Intake Total 1010 ml Output Total 2550 ml Balance -1540 ml Laboratory Data Labs 24H Laboratory Tests 2 06/13/16 09:28: Albumin 3.6, Blood Urea Nitrogen 20H, Creatinine 1.18, Sodium Level 145, Potassium Level 3.6, Chloride Level 106, Carbon Dioxide Level 31, Anion Gap 8, Calcium Level 8.4L, Glomerular Filtration Rate > 60.0, Phosphorus Level 3.3 CBC/BMP Laboratory Tests 06/13/16 09:28 Anion Gap 8 Microbiology Microbiology 06/11/16 MRSA Screen - Final, Complete Nery Claros CUSTOMER ACCOUNT EXECUTIVE Jun 13, 2016 10:51
[2016-06-13 12:00] VITALS: BP 129/76
[2016-06-13 16:00] VITALS: BP 153/92
[2016-06-13] MEDS: ATENOLOL 50 MG TAB PO SCH (18:00)
[2016-06-13] MEDS: RIVAROXABAN 15 MG TAB (XARELTO) PO SCH (18:00)
[2016-06-13] MEDS ORDERED: POTASSIUM CHLORIDE 10 MEQ SR TABLET PO ONE (19:00)
--- NOTE | 2016-06-13 19:20 | IPN ---
CARDIOLOGY PROGRESS NOTE: 06/13/2016 SUBJECTIVE: The patient has been up in the room and has been feeling well without chest pain, shortness of breath, palpitations or dizziness. Has been tolerating his medications without adverse effect. OBJECTIVE: Pleasant, talkative, elderly male of medium body build sitting comfortably. Frustratingly heart rate at rest was 135 beats per minute (BPM) and irregular. Blood pressure standing 139/89. No pallor or cyanosis. Normal oral moisture. Trachea midline. Respiratory rate 18 per minute with O2 saturation of 94% on room air. He is afebrile. His weight today is marginally down from yesterday. Neck veins were below his clavicle with him sitting and standing. Has improved air entry over both lung sarah with no current inspiratory rales or expiratory rhonchi. Has no more than plus/minus very distal lower leg pitting and soft abdomen. 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 LABORATORY DATA: Blood work this morning showed electrolyte balance with potassium down from 4.1 to 3.6 on his oral Lasix. BUN 20, creatinine 1.2, marginally up from yesterday. Albumin remains normal at 3.6. IMPRESSION/PLAN: 1. Atrial fibrillation (chronic): Though he remains free of symptomatic arrhythmia, his ventricular response is suboptimally controlled despite digoxin and metoprolol. At this point, I have discontinued his metoprolol in favor of a longer acting atenolol with slightly larger equivalent dose than what he is on now. He will remain on Xarelto. 2. Heart failure (systolic and diastolic/acute): He remains free of dyspnea and his chest sounds clear with essentially no dependent edema. Note is made of his potassium dropping from yesterday, so I have added KCl at 20 mEq tonight and for tomorrow morning. And then on a daily basis. I suspect this increased dose of atenolol will be tolerated and effective. 3. Abnormal EKG: Has remained free of chest discomfort despite his intermittent rapid rates. As mentioned, he will continue on combination atenolol, lisinopril , statin and Xarelto therapy. 4. Hypertensive heart disease (benign with heart failure): Current blood pressure somewhat suboptimally controlled as mentioned, but I suspect the increased atenolol and switching his lisinopril to 10 mg twice a day with his Lasix will ultimately control this. I have requested a followup chest x-ray, EKG and blood work for tomorrow. I am cautiously optimistic these will be fine and he could be discharged later tomorrow morning. I will plan on seeing him in followup in my office at approximately 7-10 days time. I thank you for allowing me to participate in the care of your patient. Best regards, Riccardo Downey MD [facility]
[2016-06-13 20:00] VITALS: BP 136/72
[2016-06-13] MEDS: LISINOPRIL 10 MG TAB PO SCH (20:03)
[2016-06-13] MEDS: SIMVASTATIN 20 MG TAB PO SCH (20:04)
[2016-06-14] VITALS: BP 105/61
[2016-06-14 04:00] VITALS: BP 116/88
[2016-06-14] MEDS: ATENOLOL 50 MG TAB PO SCH (05:09)
[2016-06-14] MEDS: SLF 3 ML SYR IV SCH (05:09)
[2016-06-14 05:12] LABS: MEAN CORPUSCULAR HEMOGLOBIN 30.1 pg (27.0-33.0); MEAN CORPUSCULAR HGB CONC 33.2 g/dl (32.0-36.5); MEAN CORPUSCULAR VOLUME 90.9 fl (80.0-96.0); RED CELL DISTRIBUTION WIDTH 12.8 % (11.5-14.5); WHITE BLOOD COUNT 8.7 K/mm3 (4.0-10.0)
[2016-06-14 05:31] LABS: ALBUMIN 3.3 GM/DL (3.2-5.2); ANION GAP 9 MEQ/L (8-16); BLOOD UREA NITROGEN 22 MG/DL (7-18); CALCIUM LEVEL 8.2 MG/DL (8.8-10.2); CARBON DIOXIDE LEVEL 29 MEQ/L (21-32); CHLORIDE LEVEL 107 MEQ/L (98-107); GLOMERULAR FILTRATION RATE > 60.0 (>35); GLUCOSE, FASTING 136 MG/DL (83-110); PHOSPHORUS LEVEL 3.9 MG/DL (2.5-4.9); SODIUM LEVEL 145 MEQ/L (136-145)
[2016-06-14 08:00] VITALS: BP 152/92
[2016-06-14] MEDS: PANTOPRAZOLE 40MG TAB (PROTONIX) PO SCH (08:21)
[2016-06-14] MEDS: DIGOXIN 0.125 MG TAB PO SCH (08:22)
[2016-06-14] MEDS: FUROSEMIDE 40 MG TAB PO SCH (08:22)
[2016-06-14 08:24] VITALS: BP 152/92
[2016-06-14] MEDS: LISINOPRIL 10 MG TAB PO SCH (08:24)
[2016-06-14] MEDS ORDERED: POTASSIUM CHLORIDE 10 MEQ SR TABLET PO SCH (09:00)
--- NOTE | 2016-06-14 09:09 | REP ---
CHEST PA AND LATERAL: 06/14/2016 COMPARISON: 06/07/2016, 08/20/2011 chest x-ray. CLINICAL HISTORY: Followup CHF. Today's study shows improvement with less interstitial edema. There is some basilar fibrotic change noted bilaterally. Fewer Yuliya B lines are noted. There is no parenchymal mass. Minor blunting of CP angle on the left and this is decreased with less lateral pleural thickening or fluid on both sides on the frontal view. There are small effusions on the lateral view as before. Basilar atelectatic changes on the lateral view posteriorly in the retrocardiac left lower lobe and medial basal segment of the right lower lobe. The heart size is borderline but there is no vascular redistribution or pulmonary edema. The aorta is tortuous at the arch but without aneurysm. Airway intact bony thorax shows no compression deformity. There are degenerative changes in the spine. IMPRESSION: 1. Bibasilar atelectatic change and small effusions. These have decreased since previous study and there is less vascular congestion and interstitial edema than 1 week ago. Signed by Kenneth Calderon MD 06/14/2016 09:16 A
[2016-06-14] MEDS ORDERED: ATEN50TA2 PO (10:13)
[2016-06-14] MEDS ORDERED: DIGO0.12 PO (10:13)
[2016-06-14] MEDS ORDERED: LISI10TA4 PO (10:13)
[2016-06-14] MEDS ORDERED: FURO40TA2 PO (10:13)
--- NOTE | 2016-06-14 12:12 | DSES ---
DATE OF ADMISSION: 06/11/2016 DATE OF DISCHARGE: 06/14/2016 ATTENDING PHYSICIAN: Dr. Malvin Cage. PRIMARY CARE PROVIDER: Dr. Jerel Ocasio. HISTORY OF PRESENT ILLNESS: 80-year-old male with history of chronic atrial fibrillation presented to his primary care office 4 days prior to presentation with not feeling well, being uncomfortable when he lays down without chest pain or significant dyspnea, noted to be in atrial fibrillation with rapid ventricular rate (RVR), rate at 120-130 range. Patient's medications were adjusted and was advised to go to the ER. He did present to the ER on two occasions prior to his presentation but no change in the medications were made and he was subsequently admitted directly by his primary care provider on 06/11. Patient was placed on Digoxin and metoprolol with a beta soraida. Due to his lack of response to the metoprolol, he was changed to a long acting beta soraida , atenolol, within the last 24 hours and his heart rate has come down nicely. Patient was also started on furosemide 40 mg by mouth daily. His pleural effusions have improved which is documented by chest x-ray completed today. His dawn inhibitor was changed from benazepril to lisinopril 10 mg by mouth twice daily. Patient has tolerated it well. Patient's Xarelto was maintained along with his simvastatin and pantoprazole for gastrointestinal (GI) prophylaxis as he takes Nexium at home. Patient has been ambulating without any difficulty, without any dyspnea, without any chest pain or feelings of heart palpitations. PHYSICAL EXAMINATION: Blood pressure is stable in the 150s/90s, respiratory rate is 18, heart rate is ranging anywhere from 80-100, oxygen saturation 96% on room air. HEENT: Neck is supple without lymphadenopathy or jugular venous distention (JVD). Cardiovascular: Heart rate and rhythm are irregularly irregular. Pulmonary: Lungs are clear to auscultation bilaterally. Abdomen: Soft, nontender with positive bowel sounds times all four quadrants. Bilateral lower extremities are without any edema. Neuro: Patient is alert and oriented times three. No tremors appreciated. Psych: Affect is appropriate. Conversation is congruent and patient maintains eye contact. ASSESSMENT: 1. Atrial fibrillation with rapid ventricular rate (RVR). 2. Hypertension. 3. Hyperlipidemia. 4. Hepatitis A in 1973. 5. Questionable benign prostatic hypertrophy (BPH) with current evaluation by urology. PLAN: Patient will be discharged to home. He will followup with his primary care physician on 06/17/2016. 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 Medications are as follows: - atenolol 50 mg one by mouth twice daily - Digoxin 0.125 mg by mouth daily - furosemide 40 mg by mouth daily - lisinopril 10 mg by mouth twice daily Continued medications include: - calcium with vitamin D one tablet by mouth daily at bedtime - Nexium 40 mg by mouth daily at bedtime - glucosamine 1000 mg by mouth daily at bedtime - multivitamin one tablet daily - Refresh eye drops one drop both eyes as needed dry eyes - Xarelto 50 mg by mouth daily at bedtime - simvastatin 20 mg by mouth daily at bedtime Stopped medications include: - benazepril 20 mg by mouth daily at bedtime - Amlodipine 5 mg by mouth daily at bedtime Patient is discharged in stable and satisfactory condition. There were no further question at the time of discharge. Attending note: I saw and evaluated the patient on the day of discharge, and I agree with the discharge plan of care as discussed and documented. MD CARI Phillips
--- NOTE | 2016-06-15 09:02 | ECGEPIP ---
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
== END 2016-06-14 12:09 | disposition home or self-care (01) | DRG 308 ==
LOC: UNDOADMIN 09:02 → M ICU 09:02
PROVIDERS: ADMIT Family Medicine; ATTEND Family Medicine
DX: I48.91 Unspecified atrial fibrillation (principal); I50.43 Acute on chronic combined systolic (congestive) and diastolic (congestive) heart failure; I10 Essential (primary) hypertension; E78.5 Hyperlipidemia, unspecified; K21.9 Gastro-esophageal reflux disease without esophagitis; N40.0 Benign prostatic hyperplasia without lower urinary tract symptoms; Z79.899 Other long term (current) drug therapy; Z79.01 Long term (current) use of anticoagulants; Z87.891 Personal history of nicotine dependence; Z88.0 Allergy status to penicillin

== ENCOUNTER → 2016-06-18 | Outpatient (REF) | payer MEDICARE, OTHER ==
[~2016-06-18] MED LIST changes: +ATEN50TA2 PO; +BENA20TA2 PO; -BENAZEPRIL 20 MG TAB PO SCH; +BISO5TAB5 PO; -BISOPROLOL FUMARATE 10 MG TAB PO SCH; +CALC-210 PO; +DIGO0.12 PO; +FURO40TA2 PO; +GLUC500T53 PO; +LISI10TA4 PO; +NEXI40CA PO; +OPTI0.5D5 OU; +SIMV20TA2 PO; +VITMTA PO; +XARE15TA PO
[2016-06-18 19:46] LABS: ANION GAP 11 MEQ/L (8-16); BLOOD UREA NITROGEN 20 MG/DL (7-18); CALCIUM LEVEL 8.6 MG/DL (8.8-10.2); CARBON DIOXIDE LEVEL 29 MEQ/L (21-32); CHLORIDE LEVEL 103 MEQ/L (98-107); CREATININE FOR GFR 1.18 MG/DL (0.70-1.30); DIGOXIN LEVEL 1.2 NG/ML (0.5-2.0); GLOMERULAR FILTRATION RATE > 60.0 (>35); GLUCOSE, FASTING 94 MG/DL (83-110); POTASSIUM SERUM 3.7 MEQ/L (3.5-5.1); SODIUM LEVEL 143 MEQ/L (136-145)
== END ==
LOC: M SFHCCLAY 11:42
PROVIDERS: ATTEND Family Medicine
DX: I48.2 Chronic atrial fibrillation (principal)
CPT/HCPCS: 80048; 80162; G0463

== ENCOUNTER → 2016-12-23 | Outpatient (REF) | payer MEDICARE, OTHER ==
[~2016-12-23] MED LIST changes: -BENA20TA2 PO; +BENA20TA8 PO
[2016-12-24 12:04] LABS: ALBUMIN 3.8 GM/DL (3.2-5.2); CREATININE FOR GFR 1.42 MG/DL (0.70-1.30); GLOMERULAR FILTRATION RATE 50.7 (>35); MAGNESIUM LEVEL 2.2 MG/DL (1.8-2.4); PHOSPHORUS LEVEL 3.2 MG/DL (2.5-4.9)
== END ==
LOC: M LABDRAWC 11:35
PROVIDERS: ATTEND Physician Assistant
DX: I50.32 Chronic diastolic (congestive) heart failure (principal)

== ENCOUNTER → 2017-01-28 | Outpatient (REF) | payer MEDICARE, OTHER ==
[2017-01-28 14:01] LABS: ALBUMIN 3.7 GM/DL (3.2-5.2); ANION GAP 7 MEQ/L (8-16); BLOOD UREA NITROGEN 18 MG/DL (7-18); CALCIUM LEVEL 8.7 MG/DL (8.8-10.2); CARBON DIOXIDE LEVEL 33 MEQ/L (21-32); CHLORIDE LEVEL 101 MEQ/L (98-107); GLOMERULAR FILTRATION RATE > 60.0 (>35); GLUCOSE, FASTING 140 MG/DL (83-110); PHOSPHORUS LEVEL 2.7 MG/DL (2.5-4.9); POTASSIUM SERUM 4.2 MEQ/L (3.5-5.1); SODIUM LEVEL 141 MEQ/L (136-145)
== END ==
LOC: M LABDRAWC 13:24
PROVIDERS: ATTEND Physician Assistant
DX: I50.32 Chronic diastolic (congestive) heart failure (principal)

== ENCOUNTER → 2017-02-17 | Outpatient (REF) | payer MEDICARE, OTHER | LOC: M SFHCCLAY 11:27 | PROVIDERS: ATTEND Urology | DX: R31.29 Other microscopic hematuria (principal) ==

== ENCOUNTER → 2017-06-26 | Outpatient (REF) | payer MEDICARE, OTHER ==
[2017-06-26 12:56] LABS: HEMATOCRIT 44.5 % (42.0-52.0); HEMOGLOBIN 14.5 g/dl (14.0-18.0); MEAN CORPUSCULAR HGB CONC 32.6 g/dl (32.0-36.5); MEAN CORPUSCULAR VOLUME 95.3 fl (80.0-96.0); PLATELET COUNT, AUTOMATED 190 10^3/uL (150-450); RED BLOOD COUNT 4.67 10^6/uL (4.30-6.10); RED CELL DISTRIBUTION WIDTH 13.1 % (11.5-14.5); WHITE BLOOD COUNT 8.6 10^3/uL (4.0-10.0)
[2017-06-26 13:55] LABS: ALBUMIN 3.8 GM/DL (3.2-5.2); ALBUMIN/GLOBULIN RATIO 1.31 (1.00-1.93); ALKALINE PHOSPHATASE 51 U/L (45-117); ALT/SGPT 18 U/L (12-78); ANION GAP 5 MEQ/L (8-16); AST/SGOT 15 U/L (7-37); BILIRUBIN,TOTAL 0.6 MG/DL (0.2-1.0); BLOOD UREA NITROGEN 21 MG/DL (7-18); CALCIUM LEVEL 8.4 MG/DL (8.8-10.2); CARBON DIOXIDE LEVEL 33 MEQ/L (21-32); CHLORIDE LEVEL 103 MEQ/L (98-107); CHOLESTEROL LEVEL 129 MG/DL (<200); CREATININE FOR GFR 1.21 MG/DL (0.70-1.30); GLOMERULAR FILTRATION RATE > 60.0 (>35); GLUCOSE, FASTING 161 MG/DL (70-100); HDL CHOLESTEROL 50 MG/DL (>40); LDL CHOLESTEROL 48.8 MG/DL (<100); MAGNESIUM LEVEL 2.5 MG/DL (1.8-2.4); NON-HDL-C 79 MG/DL; POTASSIUM SERUM 4.4 MEQ/L (3.5-5.1); SODIUM LEVEL 141 MEQ/L (136-145); TOTAL PROTEIN 6.7 GM/DL (6.4-8.2); TRIGLYCERIDES LEVEL 151 MG/DL (<150)
== END ==
LOC: M LABDRAWC 11:56
DX: I48.2 Chronic atrial fibrillation (principal); I50.32 Chronic diastolic (congestive) heart failure; E78.00 Pure hypercholesterolemia, unspecified
CPT/HCPCS: 83735

== ENCOUNTER → 2017-08-25 | Outpatient (REF) | payer MEDICARE, OTHER | LOC: M SFHCLERA 11:39 | DX: D23.4 Other benign neoplasm of skin of scalp and neck (principal) | CPT/HCPCS: 88305 ==

== ENCOUNTER → 2017-12-29 | Outpatient (REF) | payer MEDICARE, OTHER ==
[2017-12-29 16:59] LABS: ALBUMIN 3.4 GM/DL (3.2-5.2); ALBUMIN/GLOBULIN RATIO 1.06 (1.00-1.93); ALKALINE PHOSPHATASE 51 U/L (45-117); ALT/SGPT 19 U/L (12-78); ANION GAP 8 MEQ/L (8-16); AST/SGOT 14 U/L (7-37); BILIRUBIN,TOTAL 0.5 MG/DL (0.2-1.0); BLOOD UREA NITROGEN 16 MG/DL (7-18); CALCIUM LEVEL 8.8 MG/DL (8.8-10.2); CARBON DIOXIDE LEVEL 32 MEQ/L (21-32); CHLORIDE LEVEL 103 MEQ/L (98-107); GLOMERULAR FILTRATION RATE > 60.0 (>35); GLUCOSE, FASTING 187 MG/DL (70-100); MAGNESIUM LEVEL 2.2 MG/DL (1.8-2.4); POTASSIUM SERUM 4.1 MEQ/L (3.5-5.1); SODIUM LEVEL 143 MEQ/L (136-145); TOTAL PROTEIN 6.6 GM/DL (6.4-8.2)
[2017-12-29 17:05] LABS: HEMATOCRIT 42.9 % (42.0-52.0); HEMOGLOBIN 14.1 g/dl (13.5-17.5); MEAN CORPUSCULAR HEMOGLOBIN 31.1 pg (27.0-33.0); MEAN CORPUSCULAR HGB CONC 32.9 g/dl (32.0-36.5); MEAN CORPUSCULAR VOLUME 94.5 fl (80.0-96.0); PLATELET COUNT, AUTOMATED 180 10^3/uL (150-450); RED BLOOD COUNT 4.54 10^6/uL (4.30-6.10); RED CELL DISTRIBUTION WIDTH 12.8 % (11.5-14.5); WHITE BLOOD COUNT 7.8 10^3/uL (4.0-10.0)
== END ==
LOC: M LABDRAWC 16:17
DX: I48.2 Chronic atrial fibrillation (principal); I50.32 Chronic diastolic (congestive) heart failure; E78.00 Pure hypercholesterolemia, unspecified
CPT/HCPCS: 83735

== ENCOUNTER → 2018-02-06 | Outpatient (CLI) | payer MEDICARE, OTHER | LOC: M CLY 11:13 | DX: K44.9 Diaphragmatic hernia without obstruction or gangrene (principal); R05 Cough | CPT/HCPCS: 71046; G0463 ==

== ENCOUNTER → 2018-02-24 | Outpatient (REF) | payer MEDICARE, OTHER ==
[2018-02-24 19:00] LABS: APPEARANCE, URINE CLEAR (CLEAR); BACTERIA, URINE AUTO NEGATIVE (NEGATIVE); BILIRUBIN, URINE AUTO NEGATIVE (NEGATIVE); BLOOD, URINE BLOOD NEGATIVE (NEGATIVE); COLOR, URINE YELLOW (YELLOW); GLUCOSE, URINE (UA) AUTO NEGATIVE (NEGATIVE); KETONE, URINE AUTO NEGATIVE (NEGATIVE); LEUKOCYTE ESTERASE, URINE AUTO NEGATIVE (NEGATIVE); NITRITE, URINE AUTO NEGATIVE (NEGATIVE); PROTEIN, URINE AUTO NEGATIVE (NEGATIVE); RBC, URINE AUTO 2 /HPF (0-3); SPECIFIC GRAVITY URINE AUTO 1.009 (1.002-1.035); SQUAMOUS EPITHELIAL CELL UR AU 0 /HPF (0-6); UROBILINOGEN, URINE AUTO 0.2 mg/dL (0.0-2.0); WBC, URINE AUTO 0 /HPF (0-3)
[2018-02-26 14:39] LABS: PSA TOTAL 0.8 ng/mL (0.0-4.0)
== END ==
LOC: M SFHCCLAY 10:50
DX: N40.1 Benign prostatic hyperplasia with lower urinary tract symptoms (principal)
CPT/HCPCS: 84154

== ENCOUNTER → 2018-05-22 | Outpatient (REF) | payer MEDICARE, OTHER ==
[2018-05-22 17:13] LABS: BLOOD UREA NITROGEN 17 MG/DL (7-18); CALCIUM LEVEL 9.2 MG/DL (8.8-10.2); CARBON DIOXIDE LEVEL 31 MEQ/L (21-32); CHLORIDE LEVEL 99 MEQ/L (98-107); CREATININE FOR GFR 1.06 MG/DL (0.70-1.30); FREE T4 1.12 NG/DL (0.76-1.46); GLOMERULAR FILTRATION RATE > 60.0 (>35); GLUCOSE, FASTING 101 MG/DL (70-100); POTASSIUM SERUM 4.4 MEQ/L (3.5-5.1); SODIUM LEVEL 138 MEQ/L (136-145)
[2018-05-22 17:15] LABS: VITAMIN B12 LEVEL 597 PG/ML (247-911)
[2018-05-22 17:24] LABS: HEMOGLOBIN A1c 7.3 %
== END ==
LOC: M SFHCCLAY 10:24
PROVIDERS: ATTEND Family Medicine
DX: R41.3 Other amnesia (principal); R73.01 Impaired fasting glucose
CPT/HCPCS: 80048; 82607; 83036; 84439; 84443; G0463

== ENCOUNTER → 2018-06-29 | Outpatient (REF) | payer MEDICARE, OTHER ==
[2018-06-29 11:41] LABS: HEMATOCRIT 43.7 % (42.0-52.0); HEMOGLOBIN 14.3 g/dl (13.5-17.5); MEAN CORPUSCULAR HEMOGLOBIN 30.5 pg (27.0-33.0); MEAN CORPUSCULAR HGB CONC 32.7 g/dl (32.0-36.5); MEAN CORPUSCULAR VOLUME 93.2 fl (80.0-96.0); PLATELET COUNT, AUTOMATED 185 10^3/uL (150-450); RED BLOOD COUNT 4.69 10^6/uL (4.30-6.10); WHITE BLOOD COUNT 8.3 10^3/uL (4.0-10.0)
[2018-06-29 12:25] LABS: BLOOD UREA NITROGEN 18 MG/DL (7-18); CALCIUM LEVEL 8.7 MG/DL (8.8-10.2); CARBON DIOXIDE LEVEL 31 MEQ/L (21-32); CHLORIDE LEVEL 102 MEQ/L (98-107); CREATININE FOR GFR 1.06 MG/DL (0.70-1.30); GLOMERULAR FILTRATION RATE > 60.0 (>35); GLUCOSE, FASTING 137 MG/DL (70-100); MAGNESIUM LEVEL 2.2 MG/DL (1.8-2.4); POTASSIUM SERUM 4.4 MEQ/L (3.5-5.1); SODIUM LEVEL 140 MEQ/L (136-145)
== END ==
LOC: M LABDRAWC 11:11
PROVIDERS: ATTEND Physician Assistant
DX: I48.2 Chronic atrial fibrillation (principal); I50.32 Chronic diastolic (congestive) heart failure; E11.9 Type 2 diabetes mellitus without complications

== ENCOUNTER → 2018-06-29 | Outpatient (REF) | payer MEDICARE, OTHER ==
[2018-06-29 12:09] LABS: HEMOGLOBIN A1c 7.1 %
== END ==
LOC: M SFHCCLAY 09:11
PROVIDERS: ATTEND Family Medicine
DX: E11.9 Type 2 diabetes mellitus without complications (principal)

== ENCOUNTER → 2018-08-13 | Outpatient (REF) | payer MEDICARE, OTHER ==
[2018-08-13 11:44] LABS: BLOOD UREA NITROGEN 17 MG/DL (7-18); CALCIUM LEVEL 8.5 MG/DL (8.8-10.2); CARBON DIOXIDE LEVEL 32 MEQ/L (21-32); CHLORIDE LEVEL 106 MEQ/L (98-107); CREATININE FOR GFR 1.01 MG/DL (0.70-1.30); GLOMERULAR FILTRATION RATE > 60.0 (>35); GLUCOSE, FASTING 126 MG/DL (70-100); POTASSIUM SERUM 4.2 MEQ/L (3.5-5.1); SODIUM LEVEL 142 MEQ/L (136-145)
[2018-08-13 12:13] LABS: HEMOGLOBIN A1c 6.8 %
== END ==
LOC: M SFHCCLAY 08:21
PROVIDERS: ATTEND Family Medicine
DX: E11.9 Type 2 diabetes mellitus without complications (principal)

== ENCOUNTER → 2018-08-21 | Outpatient (REF) | payer MEDICARE, OTHER ==
[2018-08-21 11:32] LABS: HEMATOCRIT 44.8 % (42.0-52.0); HEMOGLOBIN 14.3 g/dl (13.5-17.5); MEAN CORPUSCULAR HEMOGLOBIN 30.3 pg (27.0-33.0); MEAN CORPUSCULAR HGB CONC 31.9 g/dl (32.0-36.5); MEAN CORPUSCULAR VOLUME 94.9 fl (80.0-96.0); PLATELET COUNT, AUTOMATED 172 10^3/uL (150-450); RED BLOOD COUNT 4.72 10^6/uL (4.30-6.10)
[2018-08-21 11:37] LABS: CHOLESTEROL RISK RATIO 2.357 (<5); MAGNESIUM LEVEL 2.3 MG/DL (1.8-2.4)
== END ==
LOC: M LABDRAWC 11:11
PROVIDERS: ATTEND Physician Assistant
DX: I48.2 Chronic atrial fibrillation (principal); I50.32 Chronic diastolic (congestive) heart failure; E78.00 Pure hypercholesterolemia, unspecified

== ENCOUNTER → 2018-09-22 | Outpatient (CLI) | payer MEDICARE, OTHER ==
[~2018-09-22] MED LIST changes: -CALC-210 PO; +CALC-239 PO
--- NOTE | 2018-09-22 09:50 | REP ---
Chest two views HISTORY: Right chest swelling Comparison: 02/06/2018 Linear density is present in the left lower lobe consistent with atelectasis or scar. The right lung is clear. The heart is normal in size. The pulmonary vasculature is normal in appearance. Degenerative change is present in the thoracic spine. IMPRESSION: Left lower lobe atelectasis or scar.
== END ==
LOC: M CLY 08:32
PROVIDERS: ATTEND Nurse Practitioner Family
DX: R91.8 Other nonspecific abnormal finding of lung field (principal)
CPT/HCPCS: 71046; G0463

== ENCOUNTER → 2018-11-11 | Outpatient (REF) | payer MEDICARE, OTHER ==
[2018-11-11 13:35] LABS: ALBUMIN 3.6 GM/DL (3.2-5.2); ALT/SGPT 18 U/L (12-78); BILIRUBIN,TOTAL 0.8 MG/DL (0.2-1.0); BLOOD UREA NITROGEN 19 MG/DL (7-18); CALCIUM LEVEL 9.1 MG/DL (8.8-10.2); CARBON DIOXIDE LEVEL 31 MEQ/L (21-32); CHLORIDE LEVEL 104 MEQ/L (98-107); CHOLESTEROL LEVEL 114 MG/DL (<200); CREATININE FOR GFR 1.03 MG/DL (0.70-1.30); GLOMERULAR FILTRATION RATE > 60.0 (>35); GLUCOSE, FASTING 134 MG/DL (70-100); HDL CHOLESTEROL 57 MG/DL (>40); LDL CHOLESTEROL 47 MG/DL (<100); NON-HDL-C 57 MG/DL; POTASSIUM SERUM 4.1 MEQ/L (3.5-5.1); SODIUM LEVEL 142 MEQ/L (136-145); TOTAL PROTEIN 6.8 GM/DL (6.4-8.2); TRIGLYCERIDES LEVEL 48 MG/DL (<150)
[2018-11-11 13:46] LABS: HEMATOCRIT 44.4 % (42.0-52.0); HEMOGLOBIN 14.1 g/dl (13.5-17.5); MEAN CORPUSCULAR HEMOGLOBIN 30.8 pg (27.0-33.0); MEAN CORPUSCULAR HGB CONC 31.8 g/dl (32.0-36.5); MEAN CORPUSCULAR VOLUME 96.9 fl (80.0-96.0); PLATELET COUNT, AUTOMATED 167 10^3/uL (150-450); RED BLOOD COUNT 4.58 10^6/uL (4.30-6.10)
[2018-11-11 13:49] LABS: HEMOGLOBIN A1c 6.7 %
[2018-11-11 13:59] LABS: CREATININE, URINE 17.2 MG/DL; MALB URINE SIEMENS 8.5 MG/L; MAU/CREAT RATIO 49.4 MCG/MG (0.0-30.0)
== END ==
LOC: M SFHCCLAY 08:00
PROVIDERS: ATTEND Family Medicine
DX: E11.9 Type 2 diabetes mellitus without complications (principal); I48.2 Chronic atrial fibrillation; N40.1 Benign prostatic hyperplasia with lower urinary tract symptoms

== ENCOUNTER → 2019-02-04 | Outpatient (REF) | payer MEDICARE, OTHER ==
[~2019-02-04] MED LIST changes: -BISO5TAB5 PO; +BISO5TAB9 PO
[2019-02-04 17:57] LABS: HEMATOCRIT 44.1 % (42.0-52.0); HEMOGLOBIN 14.1 g/dl (13.5-17.5); MEAN CORPUSCULAR HEMOGLOBIN 31.3 pg (27.0-33.0); MEAN CORPUSCULAR VOLUME 97.8 fl (80.0-96.0); PLATELET COUNT, AUTOMATED 159 10^3/uL (150-450); RED BLOOD COUNT 4.51 10^6/uL (4.30-6.10)
[2019-02-04 18:02] LABS: ALBUMIN 3.7 GM/DL (3.2-5.2); ALT/SGPT 21 U/L (12-78); BILIRUBIN,TOTAL 0.6 MG/DL (0.2-1.0); BLOOD UREA NITROGEN 24 MG/DL (7-18); CALCIUM LEVEL 8.9 MG/DL (8.8-10.2); CARBON DIOXIDE LEVEL 32 MEQ/L (21-32); CHLORIDE LEVEL 104 MEQ/L (98-107); CREATININE FOR GFR 1.07 MG/DL (0.70-1.30); GLOMERULAR FILTRATION RATE > 60.0 (>35); GLUCOSE, FASTING 101 MG/DL (70-100); POTASSIUM SERUM 4.4 MEQ/L (3.5-5.1); SODIUM LEVEL 143 MEQ/L (136-145); TOTAL PROTEIN 6.5 GM/DL (6.4-8.2)
[2019-02-04 19:22] LABS: HEMOGLOBIN A1c 6.3 %
== END ==
LOC: M SFHCCLAY 10:00
PROVIDERS: ATTEND Family Medicine
DX: I10 Essential (primary) hypertension (principal); E11.9 Type 2 diabetes mellitus without complications

== ENCOUNTER → 2019-04-19 | Outpatient (REF) | payer MEDICARE, OTHER ==
[2019-04-19 16:49] LABS: RHEUMATOID FACTOR QUANT < 10.0 IU/ML (<15.0); URIC ACID 5.7 MG/DL (3.5-7.2)
== END ==
LOC: M SFHCCLAY 11:28
PROVIDERS: ATTEND Family Medicine
DX: M19.042 Primary osteoarthritis, left hand (principal)
CPT/HCPCS: 36415; 84550; 85652; 86431; G0463

== ENCOUNTER → 2019-05-10 | Outpatient (CLI) | payer MEDICARE, OTHER ==
[~2019-05-10] MED LIST changes: +BISO5TAB14 PO; -BISO5TAB9 PO; -SIMV20TA2 PO; +SIMV20TA22 PO
--- NOTE | 2019-05-10 13:39 | REP ---
LEFT WRIST SERIES: Five views. HISTORY: Left wrist pain. FINDINGS: There is diffuse osteopenia. There is severe osteoarthritis with joint space narrowing, sclerosis, and large osteophytes formed at the 1st carpometacarpal articulation. Mild osteoarthritis is seen in the navicular multangular articulation. There are mild osteoarthritic changes at the IP joint of the thumb and the 2nd and 3rd MCP joints. IMPRESSION: Osteoarthritis changes most pronounced at the 1st carpometacarpal articulation. Electronically Signed by Efren Silva MD 05/10/2019 01:48 P
== END ==
LOC: M CLY 11:26
PROVIDERS: ATTEND Family Medicine
DX: M19.032 Primary osteoarthritis, left wrist (principal); M25.532 Pain in left wrist
CPT/HCPCS: 73110; G0463

== ENCOUNTER → 2019-06-08 | Outpatient (CLI) | payer MEDICARE, OTHER ==
--- NOTE | 2019-06-08 12:28 | REP ---
LEFT HAND SERIES: Four views. HISTORY: Left hand pain. Comparison views May 10, 2019. FINDINGS: There is soft-tissue swelling dorsally over the metacarpals. There is mild diffuse osteopenia. There is advanced osteoarthritis at the first carpometacarpal articulation and moderate osteoarthritic changes are seen at the PIP and DIP joints of the fingers and the IP joint of the thumb. No acute erosive change is seen. No fractures noted. IMPRESSION: Moderate to advanced osteoarthritic changes. Diffuse metacarpal soft tissue swelling dorsally. No acute bony abnormality. Electronically Signed by Efren Silva MD 06/08/2019 01:11 P
--- NOTE | 2019-06-08 12:29 | REP ---
BILATERAL SHOULDER SERIES: Six views. HISTORY: Pain. FINDINGS: Three views of each shoulder demonstrate normal alignment of the glenohumeral and acromioclavicular joints bilaterally. There is bilateral AC joint osteoarthritic spurring. There is some diffuse osteopenia. No acute erosive change is visible. Periarticular soft tissues are unremarkable. Visualized lung sarah are clear. IMPRESSION: Bilateral AC joint osteoarthritis. No acute bony abnormality. Electronically Signed by Efren Silva MD 06/08/2019 01:11 P
== END ==
LOC: M CLY 11:39
PROVIDERS: ATTEND Nurse Practitioner Family
DX: M19.042 Primary osteoarthritis, left hand (principal); M85.842 Other specified disorders of bone density and structure, left hand; M19.011 Primary osteoarthritis, right shoulder; M19.012 Primary osteoarthritis, left shoulder; M25.511 Pain in right shoulder; M25.512 Pain in left shoulder; M79.642 Pain in left hand

== ENCOUNTER → 2019-06-17 | Outpatient (REF) | payer MEDICARE, OTHER ==
[2019-06-18 11:41] LABS: HEMATOCRIT 40.7 % (42.0-52.0); HEMOGLOBIN 13.1 g/dl (13.5-17.5); MEAN CORPUSCULAR HEMOGLOBIN 30.8 pg (27.0-33.0); MEAN CORPUSCULAR HGB CONC 32.2 g/dl (32.0-36.5); MEAN CORPUSCULAR VOLUME 95.8 fl (80.0-96.0); PLATELET COUNT, AUTOMATED 241 10^3/uL (150-450); RED BLOOD COUNT 4.25 10^6/uL (4.30-6.10); WHITE BLOOD COUNT 10.5 10^3/uL (4.0-10.0)
[2019-06-18 12:29] LABS: ALBUMIN 3.6 GM/DL (3.2-5.2); ALT/SGPT 12 U/L (12-78); BILIRUBIN,TOTAL 0.5 MG/DL (0.2-1.0); BLOOD UREA NITROGEN 26 MG/DL (7-18); CARBON DIOXIDE LEVEL 32 MEQ/L (21-32); CHLORIDE LEVEL 103 MEQ/L (98-107); CREATININE FOR GFR 1.01 MG/DL (0.70-1.30); GLOMERULAR FILTRATION RATE > 60.0 (>35); GLUCOSE, FASTING 163 MG/DL (70-100); POTASSIUM SERUM 5.6 MEQ/L (3.5-5.1); SODIUM LEVEL 139 MEQ/L (136-145); TOTAL PROTEIN 6.9 GM/DL (6.4-8.2)
== END ==
LOC: M SFHCCLAY 15:14
PROVIDERS: ATTEND Family Medicine
DX: R60.9 Edema, unspecified (principal)

== ENCOUNTER → 2019-06-22 | Outpatient (REF) | payer MEDICARE, OTHER ==
[2019-06-22 18:38] LABS: BLOOD UREA NITROGEN 23 MG/DL (7-18); CARBON DIOXIDE LEVEL 30 MEQ/L (21-32); CHLORIDE LEVEL 101 MEQ/L (98-107); CREATININE FOR GFR 1.13 MG/DL (0.70-1.30); GLOMERULAR FILTRATION RATE > 60.0 (>35); GLUCOSE, FASTING 126 MG/DL (70-100); POTASSIUM SERUM 4.2 MEQ/L (3.5-5.1); SODIUM LEVEL 139 MEQ/L (136-145)
== END ==
LOC: M SFHCCLAY 11:45
PROVIDERS: ATTEND Family Medicine
DX: E87.5 Hyperkalemia (principal)

== ENCOUNTER → 2019-07-19 | Outpatient (REF) | payer MEDICARE, OTHER ==
[2019-07-19 12:17] LABS: HEMATOCRIT 39.1 % (42.0-52.0); HEMOGLOBIN 12.6 g/dl (13.5-17.5); MEAN CORPUSCULAR HEMOGLOBIN 30.4 pg (27.0-33.0); MEAN CORPUSCULAR HGB CONC 32.2 g/dl (32.0-36.5); MEAN CORPUSCULAR VOLUME 94.4 fl (80.0-96.0); PLATELET COUNT, AUTOMATED 295 10^3/uL (150-450); RED BLOOD COUNT 4.14 10^6/uL (4.30-6.10); WHITE BLOOD COUNT 9.8 10^3/uL (4.0-10.0)
[2019-07-19 12:42] LABS: BLOOD UREA NITROGEN 21 MG/DL (7-18); CALCIUM LEVEL 9.4 MG/DL (8.8-10.2); CARBON DIOXIDE LEVEL 31 MEQ/L (21-32); CHLORIDE LEVEL 103 MEQ/L (98-107); CREATININE FOR GFR 0.86 MG/DL (0.70-1.30); GLOMERULAR FILTRATION RATE > 60.0 (>35); GLUCOSE, FASTING 134 MG/DL (70-100); POTASSIUM SERUM 4.1 MEQ/L (3.5-5.1); SODIUM LEVEL 139 MEQ/L (136-145)
[2019-07-20 15:49] LABS: IRON (FE) 58 UG/DL (65-175); PERCENT SATURATION 17.7 % (19.7-50.0); TOTAL IRON BINDING CAPACITY 328 UG/DL (250-450)
[2019-07-20 16:05] LABS: VITAMIN B12 LEVEL 631 PG/ML (247-911)
== END ==
LOC: M SFHCCLAY 08:43
PROVIDERS: ATTEND Family Medicine
DX: I10 Essential (primary) hypertension (principal); R60.9 Edema, unspecified; D64.9 Anemia, unspecified; M19.90 Unspecified osteoarthritis, unspecified site

== ENCOUNTER → 2019-08-16 | Outpatient (REF) | payer MEDICARE, OTHER ==
[2019-08-16 18:24] LABS: C REACTIVE PROTEIN QUANTITATIV 3.84 MG/DL (0.00-0.30); CPK CREATINE PHOSPHOKINASE 25 U/L (39-308); FERRITIN 40 NG/ML (26-388); IRON (FE) 23 UG/DL (65-175); RHEUMATOID FACTOR QUANT < 10.0 IU/ML (<15.0); URIC ACID 5.1 MG/DL (3.5-7.2)
== END ==
LOC: M SFHCRHEU 15:00
PROVIDERS: ATTEND Internal Medicine
DX: M25.50 Pain in unspecified joint (principal)
CPT/HCPCS: 36415; 82550; 82728; 83540; 84550; 85652; 86140; 86200; 86431; G0463

== ENCOUNTER → 2019-08-17 | Outpatient (CLI) | payer MEDICARE, OTHER ==
--- NOTE | 2019-08-17 11:20 | REP ---
Clinical: Pain. Technique: AP, lateral, bilateral oblique views of the right hand. Findings: Advanced osteoarthritic degenerative changes primarily involving the interphalangeal joints, first and fifth metacarpophalangeal joint, and first and second carpometacarpal joints noted. Findings include osteophytosis, subchondral sclerosis with subtle cystic changes, joint space narrowing and gull-wing deformities. No obvious acute fracture or dislocation. Impression: Advanced osteoarthritic degenerative changes. Electronically Signed by Ivan Clements MD 08/17/2019 11:11 A
== END ==
LOC: M CLY 10:49
PROVIDERS: ATTEND Internal Medicine
DX: M19.041 Primary osteoarthritis, right hand (principal)

== ENCOUNTER → 2019-10-14 | Outpatient (REF) | payer MEDICARE, OTHER ==
[2019-10-14 16:38] LABS: HEMATOCRIT 40.5 % (42.0-52.0); HEMOGLOBIN 12.8 g/dl (13.5-17.5); MEAN CORPUSCULAR HEMOGLOBIN 28.9 pg (27.0-33.0); MEAN CORPUSCULAR HGB CONC 31.6 g/dl (32.0-36.5); MEAN CORPUSCULAR VOLUME 91.4 fl (80.0-96.0); PLATELET COUNT, AUTOMATED 216 10^3/uL (150-450); RED BLOOD COUNT 4.43 10^6/uL (4.30-6.10); WHITE BLOOD COUNT 9.3 10^3/uL (4.0-10.0)
== END ==
LOC: M SFHCCLAY 11:50
PROVIDERS: ATTEND Family Medicine
DX: D50.9 Iron deficiency anemia, unspecified (principal)
CPT/HCPCS: 83540; 85027; G0463

== ENCOUNTER → 2019-11-01 | Outpatient (REF) | payer MEDICARE, OTHER ==
[2019-11-01 17:07] LABS: HEMATOCRIT 41.1 % (42.0-52.0); HEMOGLOBIN 13.4 g/dl (13.5-17.5); MEAN CORPUSCULAR HEMOGLOBIN 29.6 pg (27.0-33.0); MEAN CORPUSCULAR HGB CONC 32.6 g/dl (32.0-36.5); MEAN CORPUSCULAR VOLUME 90.9 fl (80.0-96.0); PLATELET COUNT, AUTOMATED 264 10^3/uL (150-450); RED BLOOD COUNT 4.52 10^6/uL (4.30-6.10); WHITE BLOOD COUNT 9.7 10^3/uL (4.0-10.0)
== END ==
LOC: M SFHCCLAY 09:40
PROVIDERS: ATTEND Family Medicine
DX: D50.9 Iron deficiency anemia, unspecified (principal)

== ENCOUNTER → 2019-11-17 | Outpatient (REF) | payer MEDICARE, OTHER ==
[2019-11-17 16:43] LABS: BLOOD UREA NITROGEN 24 MG/DL (7-18); CALCIUM LEVEL 8.5 MG/DL (8.8-10.2); CARBON DIOXIDE LEVEL 29 MEQ/L (21-32); CHLORIDE LEVEL 105 MEQ/L (98-107); GLOMERULAR FILTRATION RATE > 60.0 (>35); GLUCOSE, FASTING 114 MG/DL (70-100); MAGNESIUM LEVEL 2.3 MG/DL (1.8-2.4); POTASSIUM SERUM 4.3 MEQ/L (3.5-5.1); SODIUM LEVEL 138 MEQ/L (136-145)
== END ==
LOC: M LABDRAWC 15:48
PROVIDERS: ATTEND Physician Assistant
DX: I50.32 Chronic diastolic (congestive) heart failure (principal); I48.21 Permanent atrial fibrillation

== ENCOUNTER → 2019-11-30 | Outpatient (REF) | payer MEDICARE, OTHER ==
[2019-11-30 17:15] LABS: BLOOD UREA NITROGEN 23 MG/DL (7-18); CALCIUM LEVEL 9.2 MG/DL (8.8-10.2); CARBON DIOXIDE LEVEL 30 MEQ/L (21-32); CHLORIDE LEVEL 105 MEQ/L (98-107); CREATININE FOR GFR 0.98 MG/DL (0.70-1.30); GLOMERULAR FILTRATION RATE > 60.0 (>35); GLUCOSE, FASTING 143 MG/DL (70-100); MAGNESIUM LEVEL 2.3 MG/DL (1.8-2.4); POTASSIUM SERUM 4.2 MEQ/L (3.5-5.1); SODIUM LEVEL 138 MEQ/L (136-145)
== END ==
LOC: M LABDRAWC 16:04
PROVIDERS: ATTEND Physician Assistant
DX: I50.32 Chronic diastolic (congestive) heart failure (principal); I48.21 Permanent atrial fibrillation

== ENCOUNTER → 2020-02-14 | Outpatient (REF) | payer MEDICARE, OTHER ==
[2020-02-14 17:40] LABS: BLOOD UREA NITROGEN 26 MG/DL (7-18); CALCIUM LEVEL 8.6 MG/DL (8.8-10.2); CARBON DIOXIDE LEVEL 30 MEQ/L (21-32); CHLORIDE LEVEL 105 MEQ/L (98-107); CREATININE FOR GFR 1.09 MG/DL (0.70-1.30); GLOMERULAR FILTRATION RATE > 60.0 (>35); GLUCOSE, FASTING 106 MG/DL (70-100); MAGNESIUM LEVEL 2.2 MG/DL (1.8-2.4); POTASSIUM SERUM 4.7 MEQ/L (3.5-5.1); SODIUM LEVEL 140 MEQ/L (136-145)
== END ==
LOC: M LABDRAWC 16:07
PROVIDERS: ATTEND Physician Assistant
DX: I50.32 Chronic diastolic (congestive) heart failure (principal); I48.21 Permanent atrial fibrillation

== ENCOUNTER → 2020-05-16 | Outpatient (REF) | payer MEDICARE, OTHER ==
[2020-05-16 16:46] LABS: HEMOGLOBIN A1c 5.7 %
== END ==
LOC: M SFHCCLAY 10:14
PROVIDERS: ATTEND Family Medicine
DX: E11.9 Type 2 diabetes mellitus without complications (principal)

== ENCOUNTER → 2020-05-16 | Outpatient (REF) | payer MEDICARE, OTHER ==
[2020-05-16 16:58] LABS: BLOOD UREA NITROGEN 19 MG/DL (7-18); CALCIUM LEVEL 8.8 MG/DL (8.8-10.2); CARBON DIOXIDE LEVEL 34 MEQ/L (21-32); CHLORIDE LEVEL 103 MEQ/L (98-107); CREATININE FOR GFR 0.98 MG/DL (0.70-1.30); GLOMERULAR FILTRATION RATE > 60.0 (>35); GLUCOSE, FASTING 118 MG/DL (70-100); MAGNESIUM LEVEL 2.4 MG/DL (1.8-2.4); POTASSIUM SERUM 4.3 MEQ/L (3.5-5.1); SODIUM LEVEL 139 MEQ/L (136-145)
== END ==
LOC: M LABDRAWC 16:00
PROVIDERS: ATTEND Physician Assistant
DX: I50.32 Chronic diastolic (congestive) heart failure (principal); I48.21 Permanent atrial fibrillation; E11.9 Type 2 diabetes mellitus without complications

== ENCOUNTER → 2020-08-22 | Outpatient (REF) | payer MEDICARE, OTHER ==
[~2020-08-22] MED LIST changes: +LISI10TA22 PO; -LISI10TA4 PO
[2020-08-22 12:50] LABS: HEMATOCRIT 45.1 % (42.0-52.0); HEMOGLOBIN 14.3 g/dl (13.5-17.5); MEAN CORPUSCULAR HEMOGLOBIN 30.4 pg (27.0-33.0); MEAN CORPUSCULAR HGB CONC 31.7 g/dl (32.0-36.5); PLATELET COUNT, AUTOMATED 177 10^3/uL (150-450); WHITE BLOOD COUNT 7.6 10^3/uL (4.0-10.0)
[2020-08-22 13:25] LABS: ALBUMIN 3.7 GM/DL (3.2-5.2); ALT/SGPT 13 U/L (12-78); BILIRUBIN,TOTAL 0.7 MG/DL (0.2-1.0); BLOOD UREA NITROGEN 26 MG/DL (7-18); CARBON DIOXIDE LEVEL 33 MEQ/L (21-32); CHLORIDE LEVEL 105 MEQ/L (98-107); CHOLESTEROL LEVEL 172 MG/DL (<200); CREATININE FOR GFR 0.98 MG/DL (0.70-1.30); GLOMERULAR FILTRATION RATE > 60.0 (>35); GLUCOSE, FASTING 114 MG/DL (70-100); HDL CHOLESTEROL 63 MG/DL (>40); LDL CHOLESTEROL 90 MG/DL (<100); MAGNESIUM LEVEL 2.2 MG/DL (1.8-2.4); NON-HDL-C 109 MG/DL; POTASSIUM SERUM 4.5 MEQ/L (3.5-5.1); SODIUM LEVEL 141 MEQ/L (136-145); TOTAL PROTEIN 6.6 GM/DL (6.4-8.2); TRIGLYCERIDES LEVEL 97 MG/DL (<150)
== END ==
LOC: M LAB REF 11:16 → M LABDRAWC 11:16
PROVIDERS: ATTEND Physician Assistant
DX: I50.32 Chronic diastolic (congestive) heart failure (principal); I48.21 Permanent atrial fibrillation; E78.00 Pure hypercholesterolemia, unspecified

== ENCOUNTER → 2020-11-09 | Outpatient (REF) | payer MEDICARE, OTHER | LOC: M SFHCCLAY 13:55 | PROVIDERS: ATTEND Physician Assistant | DX: R35.0 Frequency of micturition (principal) | CPT/HCPCS: 81002; 87088; 87186; G0463 ==

== ENCOUNTER → 2020-12-07 | Outpatient (REF) | payer MEDICARE, OTHER ==
[2020-12-07 12:03] LABS: HEMATOCRIT 41.9 % (42.0-52.0); HEMOGLOBIN 13.3 g/dl (13.5-17.5); MEAN CORPUSCULAR HEMOGLOBIN 30.3 pg (27.0-33.0); MEAN CORPUSCULAR HGB CONC 31.7 g/dl (32.0-36.5); MEAN CORPUSCULAR VOLUME 95.4 fl (80.0-96.0); PLATELET COUNT, AUTOMATED 148 10^3/uL (150-450); RED BLOOD COUNT 4.39 10^6/uL (4.30-6.10); WHITE BLOOD COUNT 8.4 10^3/uL (4.0-10.0)
[2020-12-07 12:17] LABS: HEMOGLOBIN A1c 6.2 %
[2020-12-07 12:49] LABS: BLOOD UREA NITROGEN 24 MG/DL (7-18); CALCIUM LEVEL 8.7 MG/DL (8.8-10.2); CARBON DIOXIDE LEVEL 33 MEQ/L (21-32); CHLORIDE LEVEL 104 MEQ/L (98-107); GLOMERULAR FILTRATION RATE > 60.0 (>35); GLUCOSE, FASTING 94 MG/DL (70-100); IRON (FE) 106 UG/DL (65-175); POTASSIUM SERUM 4.3 MEQ/L (3.5-5.1); SODIUM LEVEL 141 MEQ/L (136-145)
== END ==
LOC: M SFHCCLAY 07:49
PROVIDERS: ATTEND Family Medicine
DX: D50.9 Iron deficiency anemia, unspecified (principal); E11.9 Type 2 diabetes mellitus without complications; I10 Essential (primary) hypertension
CPT/HCPCS: 80048; 83036; 83540; 85027; G0463

== ENCOUNTER → 2021-03-01 | Outpatient (CLI) | payer MEDICARE, OTHER ==
--- NOTE | 2021-03-01 10:43 | REP ---
INDICATION: NECK PAIN COMPARISON: 12/19/2005 TECHNIQUE: AP, lateral, flexion/extension, bilateral oblique, swimmer's and open-mouth views. FINDINGS: Diffuse age-related osteopenia is appreciated along with advanced multilevel degenerative changes including bridging osteophytes, endplate sclerosis, hypertrophic facet changes and disc space narrowing. No evidence for acute fracture/compression injury or subluxation. IMPRESSION: Osteopenia and advanced multilevel degenerative spondylosis. No fracture/compression injury or subluxation. <Electronically signed by Ivan Clements > 03/01/21 [id number]
== END ==
LOC: M CLY 10:15
PROVIDERS: ATTEND Physician Assistant
DX: M85.88 Other specified disorders of bone density and structure, other site (principal); M47.812 Spondylosis without myelopathy or radiculopathy, cervical region; M54.2 Cervicalgia
CPT/HCPCS: 72050; G0463

== ENCOUNTER → 2021-09-12 | Outpatient (REF) | payer MEDICARE, OTHER ==
[~2021-09-12] MED LIST changes: +BENA-8 PO; -BENA20TA8 PO
[2021-09-12 11:46] LABS: HEMATOCRIT 44.4 % (42.0-52.0); HEMOGLOBIN 14.4 g/dl (13.5-17.5); MEAN CORPUSCULAR HEMOGLOBIN 31.7 pg (27.0-33.0); MEAN CORPUSCULAR HGB CONC 32.4 g/dl (32.0-36.5); MEAN CORPUSCULAR VOLUME 97.8 fl (80.0-96.0); PLATELET COUNT, AUTOMATED 165 10^3/uL (150-450); RED BLOOD COUNT 4.54 10^6/uL (4.30-6.10); WHITE BLOOD COUNT 7.9 10^3/uL (4.0-10.0)
[2021-09-12 12:13] LABS: BLOOD UREA NITROGEN 25 MG/DL (7-18); CARBON DIOXIDE LEVEL 32 MEQ/L (21-32); CHLORIDE LEVEL 103 MEQ/L (98-107); CREATININE FOR GFR 1.15 MG/DL (0.70-1.30); GLOMERULAR FILTRATION RATE > 60.0 (>35); GLUCOSE, FASTING 100 MG/DL (70-100); MAGNESIUM LEVEL 2.3 MG/DL (1.8-2.4); POTASSIUM SERUM 4.6 MEQ/L (3.5-5.1); SODIUM LEVEL 140 MEQ/L (136-145)
== END ==
LOC: M LABDRAWC 11:12
PROVIDERS: ATTEND Physician Assistant
DX: I50.32 Chronic diastolic (congestive) heart failure (principal); I48.21 Permanent atrial fibrillation